=== PATIENT | female | born 1950 ===

== ENCOUNTER 2025-10-04 15:00 | Inpatient (IN) | payer OTHER ==
[~2025-10-04] VITALS: Ht 154.9 cm; Wt 49.9 kg
[2025-10-04] MEDS ORDERED: MOME220I INH ×2 (15:36→16:48)
[2025-10-04] MEDS ORDERED: VERA80 PO ×2 (15:37→16:46)
[2025-10-04] MEDS ORDERED: LOSA25 PO (15:37)
[2025-10-04] MEDS ORDERED: DIPH50 PO (15:37)
[2025-10-04] MEDS ORDERED: GUAI200 PO (15:38)
[2025-10-04] MEDS ORDERED: MONT10T PO ×2 (15:38→16:47)
[2025-10-04] MEDS ORDERED: TIOT18 INH (16:46)
[2025-10-04] MEDS ORDERED: STIOLTO RESPIMAT4 G1 INH (16:47)
[2025-10-04] MEDS ORDERED: LOSA50 PO (16:48)
[2025-10-04] MEDS ORDERED: HYDCHL25 PO (16:51)
[2025-10-04] MEDS ORDERED: ALBU2.5V5 INH (16:52)
[2025-10-04] MEDS ORDERED: ALBU90OI INH (16:52)
[2025-10-04] MEDS ORDERED: BENADRYL25 MG PO (16:52)
[2025-10-04] MEDS ORDERED: Albuterol 2.5 MG/3 ML VIAL INH ONE (17:25)
[2025-10-04 17:27] LABS: BASOPHILS ABSOLUTE AUTO 0.06 K/mm3 (0.00-0.23); BASOPHILS PERCENT AUTO 1 % (0-2); EOSINOPHILS ABSOLUTE AUTO 0.08 K/mm3 (0.00-0.68); EOSINOPHILS PERCENT AUTO 1 % (0-6); Hematocrit 44.7 % (33.0-51.0); Hemoglobin 15.3 g/dL (11.5-16.0); IMMATURE GRAN ABSOLUTE AUTO 0.16 K/mm3 (0.00-0.10); IMMATURE GRAN PERCENT AUTO 1 % (0-1); LYMPHOCYTES ABSOLUTE AUTO 0.65 K/mm3 (0.84-5.20); LYMPHOCYTES PERCENT AUTO 5 % (21-46); MONOCYTES ABSOLUTE AUTO 0.71 K/mm3 (0.16-1.47); MONOCYTES PERCENT AUTO 6 % (4-13); Mean Corpuscular HGB Conc 34.2 g/dL (31.5-36.5); Mean Corpuscular Volume 89 fL (80-100); NEUTROPHILS ABSOLUTE AUTO 11.12 K/mm3 (1.96-9.15); NEUTROPHILS PERCENT AUTO 87 % (41-73); NRBC ABSOLUTE 0.00 K/mm3 (0.00-0.02); NRBC Auto 0.0 /100 WBC (0.0-0.2); RDW Coefficient Variation 13.3 % (11.7-14.2); RDW Standard Deviation 43.0 fL (35.1-46.3)
[2025-10-04] MEDS ORDERED: NS 1,000 ML IV ONE ×2 (17:29→22:15)
[2025-10-04 17:47] LABS: Magnesium, Blood 1.8 mg/dL (1.6-2.4); Thyroid Stimulating Hormone 0.711 uIU/mL (0.360-4.800)
[2025-10-04 17:48] LABS: Anion Gap 15.0 mmol/L (3-11); Blood Urea Nitrogen 10.0 mg/dL (8-24); CO2, Blood 22.0 mmol/L (21-32); Calcium, Blood 8.9 mg/dL (8.5-10.1); Chloride, Blood 97.0 mmol/L (98-108); Creatinine, Blood 0.3 mg/dL (0.40-1.00); Glucose, Blood 103.0 mg/dL (70-99); Platelet Count 382 K/mm3 (150-400); Potassium, Blood 3.6 mmol/L (3.5-5.5); Sodium, Blood 130.0 mmol/L (136-145)
[2025-10-04] MEDS ORDERED: Ondansetron HCl 2 MG / ML 2ML Vial IV PRN (22:10)
[2025-10-04] MEDS ORDERED: FLU VACC TS2025(65UP)/MF59C/PF 45 MCG/0.5 ML SYRINGE IM SCH (22:15)
[2025-10-04] MEDS ORDERED: NS 500 ML IV SCH (23:00)
[2025-10-04 23:31] LABS: Source, Urine Clean Catch
[2025-10-04] MEDS ORDERED: FentaNYL Citrate 50 MCG/ML 2 ML Injection IV PRN (23:35)
[2025-10-04 23:36] LABS: Glucose Qualitative, Urine Neg (Neg); Ketones, Urine 4+ (Neg); Leukocyte Esterase, Urine 1+ (Neg); Protein, Urine 2+ (Neg); Specific Gravity, Urine 1.010 (1.003-1.022); Urobilinogen, Urine 1+ (Normal)
[2025-10-04] MEDS ORDERED: Mometasone Furoate Inhaler 220 mcg 14 ACT INH SCH (23:40)
[2025-10-04 23:42] LABS: Bilirubin, Urine 1+ (Neg); Color, Urine Yellow (P-Yellow)
[2025-10-04] MEDS ORDERED: Tiotropium Bromide 2.5 MCG/ACT MIST INHAL (10 ACT/4 GM) INH SCH (23:45)
[2025-10-04] MEDS ORDERED: Albuterol HFA200 ACT/6.7 GM INH INH PRN (23:45)
[2025-10-04 23:49] LABS: U Amphetamine Screen Not Detected; U Barbiturate Screen Not Detected; U Benzodiazapine Screen Not Detected; U Buprenorphine Screen Not Detected; U Cannabinoids Screen Not Detected; U Cocaine Screen Not Detected; U Methadone Screen Not Detected; U Methamphetamine Screen Not Detected; U Opiates Screen Not Detected; U Oxycodone Screen Not Detected; U Phencyclidine Screen Not Detected
[2025-10-04 23:52] LABS: Alanine Aminotransfer (ALT/SGP 26.0 U/L (12-78); Albumin, Blood 2.5 g/dL (3.4-5.0); Albumin/Globulin Ratio 0.6 (0.8-1.8); Aspartate Aminotrans (AST/SGOT 46.0 U/L (12-37); Bilirubin, Direct 0.1 mg/dL (0.0-0.3); Bilirubin, Indirect 0.4 mg/dL (0.1-0.7); Bilirubin, Total 0.5 mg/dL (0.1-1.0); Globulin, Blood 3.9 g/dL (2.2-4.0); Phosphorus, Blood 2.8 mg/dL (2.5-4.9); Total Protein, Blood 6.4 g/dL (6.4-8.2)
[2025-10-05 00:36] VITALS: BP 147/74
[2025-10-05 03:28] VITALS: BP 151/64
[2025-10-05] MEDS ORDERED: GuaiFENesin 200 MG IR Tab PO PRN (03:55)
--- NOTE | 2025-10-05 04:29 | NUR ---
TALHA ARRIVED TO THE FLOOR AT 0025 AFTER A GROUND LEVEL FALL AT HOME. SHE WAS DOWN FOR AN UNKNOWN AMOUNT OF TIME, ANYWHERE FROM 1-4 DAYS. PT IS ALERT AND ORIENTED X 4. ABLE TO MAKE NEEDS KNOWN. SHE HAS SCATTERED BRUISING THROUGHOUT AND A SKIN TEAR ON HER RIGHT HIP WHICH WAS DRESSED. SHE COMPLAINS OF GENERALIZED PAIN ALL OVER. SHE HAS HISTORY OF LUNG CANCER. COUGHS FREQUENTLY. AT HOME SHE TAKES MUCINEX AND BENADRYL EVERY 4 HOURS. THIS WAS DISCUSSED WITH HOSPITALIST AND A 1 TIME BENADRYL AND MUCINEX WAS ORDERED NOW. SHE HAS A 6TH RIB FRACTURE FROM FALL. SHE IS ON 2L WHICH IS ALSO HER BASELINE AT HOME. LAC PIV/PATENT/SALINE LOCKED. 1-2 PERSON ASSIST, UNABLE TO AMBULATE AT THIS TIME D/T FALL. REGULAR DIET, PROVIDED HER WITH A SANDWICH SHE SAYS SHE HASN'T EATEN IN 4 DAYS. SHE LIVES ALONE. HER FRIEND AND NEIGHBOR HELP CHECK IN ON HER. OFFERED [place] D/T LIMITED MOBILITY AND PT REFUSED. DURING ASSESSMENT PT REPORTS DRINKING 4 SHOTS OF MINDI NIGHTLY. SHE IS UNSURE WHEN HER LAST DRINK WAS. STATES "BEFORE I FELL". SHE DOES NOT APPEAR TO BE EXPERIENCING ANY W/D SYMPTOMS AT THIS TIME. WILL CONTINUE TO MONITOR CLOSELY. VSS. BED IN LOWEST POSITION. CALL LIGHT IN REACH.
[2025-10-05 05:24] LABS: BASOPHILS ABSOLUTE AUTO 0.04 K/mm3 (0.00-0.23); BASOPHILS PERCENT AUTO 0 % (0-2); EOSINOPHILS ABSOLUTE AUTO 0.14 K/mm3 (0.00-0.68); EOSINOPHILS PERCENT AUTO 1 % (0-6); Hematocrit 39.0 % (33.0-51.0); Hemoglobin 13.2 g/dL (11.5-16.0); IMMATURE GRAN ABSOLUTE AUTO 0.06 K/mm3 (0.00-0.10); IMMATURE GRAN PERCENT AUTO 1 % (0-1); LYMPHOCYTES ABSOLUTE AUTO 0.90 K/mm3 (0.84-5.20); LYMPHOCYTES PERCENT AUTO 9 % (21-46); MONOCYTES ABSOLUTE AUTO 0.92 K/mm3 (0.16-1.47); MONOCYTES PERCENT AUTO 9 % (4-13); Mean Corpuscular HGB Conc 33.8 g/dL (31.5-36.5); Mean Corpuscular Volume 89 fL (80-100); NEUTROPHILS ABSOLUTE AUTO 8.23 K/mm3 (1.96-9.15); NEUTROPHILS PERCENT AUTO 80 % (41-73); NRBC ABSOLUTE 0.00 K/mm3 (0.00-0.02); NRBC Auto 0.0 /100 WBC (0.0-0.2); Platelet Count 358 K/mm3 (150-400); RDW Coefficient Variation 13.4 % (11.7-14.2); RDW Standard Deviation 43.9 fL (35.1-46.3)
[2025-10-05 05:57] LABS: Alanine Aminotransfer (ALT/SGP 28.0 U/L (12-78); Albumin, Blood 2.5 g/dL (3.4-5.0); Albumin/Globulin Ratio 0.7 (0.8-1.8); Anion Gap 9.0 mmol/L (3-11); Aspartate Aminotrans (AST/SGOT 40.0 U/L (12-37); Bilirubin, Direct 0.2 mg/dL (0.0-0.3); Bilirubin, Indirect 0.3 mg/dL (0.1-0.7); Bilirubin, Total 0.5 mg/dL (0.1-1.0); Blood Urea Nitrogen 17.0 mg/dL (8-24); CO2, Blood 26.0 mmol/L (21-32); Calcium, Blood 9.0 mg/dL (8.5-10.1); Chloride, Blood 99.0 mmol/L (98-108); Creatinine, Blood 0.39 mg/dL (0.40-1.00); Globulin, Blood 3.8 g/dL (2.2-4.0); Glucose, Blood 134.0 mg/dL (70-99); Potassium, Blood 3.2 mmol/L (3.5-5.5); Sodium, Blood 131.0 mmol/L (136-145); Total Protein, Blood 6.3 g/dL (6.4-8.2)
[2025-10-05 07:24] VITALS: BP 142/87
[2025-10-05 10:54] VITALS: BP 146/82
[2025-10-05 15:28] VITALS: BP 149/92
--- NOTE | 2025-10-05 17:10 | NUR ---
PHYSICIAN CONTACT: SPOKE WITH DR. FRANZ ABOUT STARTING PT ON AN ORAL PAIN MEDICATION. DR. FRANZ SAID HE WILL REVIEW CHART AND START A NEW MEDICATION. NO NEW ORDERS FOR THIS NURSE AT THIS TIME.
--- NOTE | 2025-10-05 17:29 | NUR ---
SHIFT SUMMARY: ADMITTED FOR GROUND LEVEL FALL, UNKNOWN HOW LONG SHE WAS DOWN. A&Ox4, DNR, MEDICATED PER EMAR, 1/2 PERSON ASSIST TO TRANSFER, ON 2L NC, GAVE INCENTIVE SPRIOMETER TO USE, BED IN LOWEST POSITION, CALL LIGHT WITHIN REACH.
[2025-10-05] MEDS ORDERED: OxyCODONE 5 mg/Acetamin 325 mg TABLET PO PRN (17:35)
[2025-10-05 17:43] LABS: Anion Gap 5.0 mmol/L (3-11); Blood Urea Nitrogen 17.0 mg/dL (8-24); CO2, Blood 29.0 mmol/L (21-32); Calcium, Blood 9.3 mg/dL (8.5-10.1); Chloride, Blood 101.0 mmol/L (98-108); Creatinine, Blood 0.52 mg/dL (0.40-1.00); Glucose, Blood 108.0 mg/dL (70-99); Potassium, Blood 4.0 mmol/L (3.5-5.5); Sodium, Blood 131.0 mmol/L (136-145)
[2025-10-05 19:40] VITALS: BP 137/69
[2025-10-06 04:59] LABS: BASOPHILS ABSOLUTE AUTO 0.07 K/mm3 (0.00-0.23); BASOPHILS PERCENT AUTO 1 % (0-2); EOSINOPHILS ABSOLUTE AUTO 0.26 K/mm3 (0.00-0.68); EOSINOPHILS PERCENT AUTO 3 % (0-6); Hematocrit 36.5 % (33.0-51.0); Hemoglobin 12.3 g/dL (11.5-16.0); IMMATURE GRAN ABSOLUTE AUTO 0.08 K/mm3 (0.00-0.10); IMMATURE GRAN PERCENT AUTO 1 % (0-1); LYMPHOCYTES ABSOLUTE AUTO 0.94 K/mm3 (0.84-5.20); LYMPHOCYTES PERCENT AUTO 11 % (21-46); MONOCYTES ABSOLUTE AUTO 0.81 K/mm3 (0.16-1.47); MONOCYTES PERCENT AUTO 9 % (4-13); Mean Corpuscular HGB Conc 33.7 g/dL (31.5-36.5); Mean Corpuscular Volume 90 fL (80-100); NEUTROPHILS ABSOLUTE AUTO 6.57 K/mm3 (1.96-9.15); NEUTROPHILS PERCENT AUTO 75 % (41-73); NRBC ABSOLUTE 0.00 K/mm3 (0.00-0.02); NRBC Auto 0.0 /100 WBC (0.0-0.2); Platelet Count 336 K/mm3 (150-400); RDW Coefficient Variation 13.5 % (11.7-14.2); RDW Standard Deviation 45.0 fL (35.1-46.3)
[2025-10-06 05:37] VITALS: BP 143/86
[2025-10-06 06:09] LABS: Alanine Aminotransfer (ALT/SGP 30.0 U/L (12-78); Albumin, Blood 2.3 g/dL (3.4-5.0); Albumin/Globulin Ratio 0.7 (0.8-1.8); Anion Gap 8.0 mmol/L (3-11); Aspartate Aminotrans (AST/SGOT 33.0 U/L (12-37); Bilirubin, Total 0.3 mg/dL (0.1-1.0); Blood Urea Nitrogen 17.0 mg/dL (8-24); CO2, Blood 27.0 mmol/L (21-32); Calcium, Blood 9.2 mg/dL (8.5-10.1); Chloride, Blood 101.0 mmol/L (98-108); Creatinine, Blood 0.37 mg/dL (0.40-1.00); Globulin, Blood 3.4 g/dL (2.2-4.0); Glucose, Blood 120.0 mg/dL (70-99); Magnesium, Blood 1.8 mg/dL (1.6-2.4); Phosphorus, Blood 2.9 mg/dL (2.5-4.9); Potassium, Blood 3.7 mmol/L (3.5-5.5); Sodium, Blood 132.0 mmol/L (136-145); Total Protein, Blood 5.7 g/dL (6.4-8.2)
[2025-10-06] MEDS ORDERED: Mag Sulfate 1 GM/D5% 100ML 100 ML IV STA (06:50)
--- NOTE | 2025-10-06 07:30 | NUR ---
SHIFT SUMMARY A&OX4. ABLE TO MAKE NEEDS KNOWN. 1-2 PERSON ASSIST TO BSC AFTER BLADDER SCAN SHOWED >400 MLS. PT WAS ABLE TO VOID ON HER OWN. URINE IS VERY STRONG SMELLING. PT IS DRINKING WATER ON HER OWN AND REQUESTS ICE WATER FREQUENTLY BUT ONLY TAKES SMALL SIPS AT A TIME. DRESSING ON RIGHT HIP ABRASION DISLODGED AND REPLACED WITH FOAM DRESSING PER ORDER. EDUCATED ON IMPORTANCE OF REPOSITIONING AND KEEPING PRESSURE OFF OF THIS AREA. ALSO ASSISTED PT TO REPOSITION TO LEFT SIDE WITH PILLOWS. FEET RED AND BLANCHABLE. HEEL PROTECTORS APPLIED TO BILATERAL HEELS. CONTINUES TO BE ON 2 LPM O2 VIA NC AND O2 SATS REMAIN IN MID 90'S. PT STATES HER SOB IS CURRENTLY AT BASELINE. PT CURRENTLY SITTING UP IN BED AT LOWEST POSITION WITH SIDE RAILS X3 AND CALL LIGHT WITHIN REACH.
[2025-10-06] MEDS ORDERED: NS 250 ML IV PRN (07:40)
[2025-10-06 07:47] VITALS: BP 132/70
[2025-10-06] MEDS ORDERED: Enoxaparin 40 MG/0.4 ML SYR SC SCH (08:00)
--- NOTE | 2025-10-06 14:56 | NUR ---
ATTEMPTED TO SEE PT THIS MORNING. PT REPORTS SHE IS TIRED AND DOESN'T WANT TO TALK RIGHT NOW. PC TO REMAIN AVAILABLE NEEDED.
[2025-10-06 15:36] VITALS: BP 130/72
--- NOTE | 2025-10-06 17:49 | NUR ---
SHIFT SUMMARY PT AOX4, CALLS AND MAKES HER NEEDS KNOWN. UP TO THE CHAIR THIS SHIFT, TIP STOPPED BY TO VISIT. PT IS AGREEABLE TO SNF, CARE MANAGEMENT AWARE. PALLIATIVE CARE AT THE BS TODAY. MEDICATED FOR HER COUGH PER THE EMAR, PT STATES RELIEF. REPOSITIONED THROUGHOUT THE SHIFT. CALL LIGHT WITHIN REACH, BED LOCKED AND IN THE LOWEST POSITION. WILL REPORT TO ONCOMING NURSE.
[2025-10-06 19:55] VITALS: BP 144/94
[2025-10-07 03:50] VITALS: BP 126/74
--- NOTE | 2025-10-07 04:13 | NUR ---
SHIFT SUMMARY A&OX4. ABLE TO MAKE NEEDS KNOWN. SLEPT A GOOD PORTION OF THE NIGHT. DOES HAVE SOME BLANCAHBLE REDNESS TO HER COCCYX. MEPILEX APPLIED TO COCCYX AND AIR PRESSURE PAD APPLIED TO HER BED. SHE DID HAVE SOME URINARY INCONTINENCE SHE WAS NOT ABLE TO WAIT TO GET TO BSC. PT CLEANED UP AND BED CHANGE PERFORMED. SHE CONTIUES TO WEAR O2. SHE DID GET SOME SOB DURING SHIFT AND ALBUTEROL INHALER GIVEN WHICH SHE FELT HELPED WITH HER SOB. EDUCATED ON IMPORTANCE OF ELEVATING HOB FOR BETTER AIR EXCHANGE AND IMPORTANCE OF OFFLOADING. RIGHT SHOULDER BRUISE IS NOW BLISTERED. NO DRAINAGE NOTED AT THIS TIME. MEPILEX APPLIED. PT CURRENTLY SITTING UP IN BED AT LOWEST POSITION, RESTING WITH CALL LIGHT WITHIN REACH.
[2025-10-07 07:37] LABS: Anion Gap 8.0 mmol/L (3-11); Blood Urea Nitrogen 14.0 mg/dL (8-24); CO2, Blood 29.0 mmol/L (21-32); Calcium, Blood 8.8 mg/dL (8.5-10.1); Chloride, Blood 97.0 mmol/L (98-108); Creatinine, Blood 0.35 mg/dL (0.40-1.00); Glucose, Blood 120.0 mg/dL (70-99); Potassium, Blood 4.2 mmol/L (3.5-5.5); Sodium, Blood 130.0 mmol/L (136-145)
[2025-10-07 07:50] VITALS: BP 127/75
[2025-10-07 09:22] LABS: MYOGLOBIN SERUM 158 ng/mL (<=58)
[2025-10-07] MEDS ORDERED: BENZ100A PO (12:23)
[2025-10-07] MEDS ORDERED: Percocet 5-3251 EACH PO (12:25)
[2025-10-07 12:38] LABS: SARS-Cov-2 (COVID-19) PCR, MMC NEGATIVE (NEGATIVE)
--- NOTE | 2025-10-07 16:27 | NUR ---
PT DISCHARGED AT 1515 TO [facility]. WHEELCHAIR TRANSPORT, PT SENT WITH ALL BELONGINGS. CALLED REPORT TO [facility] AT 1400. SENT WITH PORTABLE OXYGEN TANK. ACCIDENTALLY LEFT THE DC PACKET, MASH GRINDER DYANI MADE CALLS TO FIGURE OUT HOW TO GET THE INFO TO THEM.
== END 2025-10-07 15:22 | DRG 558 ==
LOC: ER 15:00 → MEDS 21:31 → ERHOLD 21:31 → MEDS 10-05 00:30
PROVIDERS: Emergency Medicine; ADMIT Internal Medicine
DX: M62.82 Rhabdomyolysis (principal); E87.1 Hypo-osmolality and hyponatremia; J96.11 Chronic respiratory failure with hypoxia; C34.90 Malignant neoplasm of unspecified part of unspecified bronchus or lung; M25.551 Pain in right hip; S40.211A Abrasion of right shoulder, initial encounter; D72.829 Elevated white blood cell count, unspecified; I10 Essential (primary) hypertension; E86.0 Dehydration; Z99.81 Dependence on supplemental oxygen; Z66 Do not resuscitate; M50.30 Other cervical disc degeneration, unspecified cervical region; M51.34 Other intervertebral disc degeneration, thoracic region; R91.1 Solitary pulmonary nodule; S70.211A Abrasion, right hip, initial encounter; Z60.2 Problems related to living alone; R53.81 Other malaise; F10.10 Alcohol abuse, uncomplicated; M85.80 Other specified disorders of bone density and structure, unspecified site; F17.210 Nicotine dependence, cigarettes, uncomplicated; E87.6 Hypokalemia; J43.9 Emphysema, unspecified; Z23 Encounter for immunization; Z79.899 Other long term (current) drug therapy; Z79.51 Long term (current) use of inhaled steroids; Z91.038 Other insect allergy status; Z87.81 Personal history of (healed) traumatic fracture; Z88.5 Allergy status to narcotic agent; Z88.1 Allergy status to other antibiotic agents; Z88.8 Allergy status to other drugs, medicaments and biological substances; Y93.9 Activity, unspecified; W19.XXXA Unspecified fall, initial encounter; Y92.009 Unspecified place in unspecified non-institutional (private) residence as the place of occurrence of the external cause
CPT/HCPCS: 36415; 70450; 71045; 72125; 73030; 73502; 80048; 80053; 80076; 81001; 82248; 82550; 82607; 83735; 83874; 83880; 84100; 84439; 84443; 85025; 93005; 93010; 94640; 94664; 94760; 94762; 97162; 97165; 97530; 97535; 99285-25; A9270; J1650; J3475; J7030; J7050; U0002